=== PATIENT | female | born 1955 | race Caucasian/White ===

== ENCOUNTER 2018-01-29 18:53 | Emergency (ER) | payer SELFPAY ==
--- NOTE | 2018-01-29 19:02 | EDM.PDOC ---
ED HPI GENERAL MEDICAL PROBLEM - General Stated Complaint: BLOOD SUGURS ARE LOW Time Seen by Provider: 01/29/18 18:59 Source of Information: Reports: Patient History Limitations: Reports: No Limitations - History of Present Illness INITIAL COMMENTS - FREE TEXT/NARRATIVE: HISTORY AND PHYSICAL: History of present illness: 62-year-old female presenting to emergency department with chief complaint of low blood sugars over the past 4 weeks. Patient states that she recently moved to [place] to help her daughter with her children from [place] approximately 4 wks ago. Ever since she's moved here she's had problems with hypoglycemia. She does have a history of type 2 diabetes however after gastric bypass and losing weight she has not been taking any medications. She still does take sugars and states that ever since she came here she's been having episodes where her blood sugars are going into the 40s. Patient denies any new medications or other significant medical changes. She has felt more stressed and is tearful at this time. She does have a history of depression as well as suicide in the family. She currently denies any suicidal or homicidal ideations. 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 She is currently taking diltiazem as well as hydrochlorothiazide. In addition she is just taking vitamin supplements secondary to gastric bypass. She states that she can tell when she is getting low as she gets somewhat nauseous and weak. She also states that she has been more "cranky" and also feels like her "eyes are beginning to bulge". She has no history of hypo-or hyperthyroidism. She denies any chest pain, palpitations, shortness breath, syncopal episodes, focal neurologic deficits. Looking at the patient's glucometer history she has had several episodes of hypoglycemia in the past month. First episode started on 01/10 with a reading of 43, then 01/12 47, 01/19 54, 01/27 57. She denies any significant changes in her diet to explain his readings other than moving to [place]. Review of systems: As per history of present illness and below otherwise all systems reviewed and negative. Past medical history: As per history of present illness and as reviewed below otherwise noncontributory. Surgical history: As per history of present illness and as reviewed below otherwise noncontributory. Social history: No reported history of drug or alcohol abuse. Family history: As per history of present illness and as reviewed below otherwise noncontributory. Physical exam: HEENT: Atraumatic, normocephalic, pupils reactive, negative for conjunctival pallor or scleral icterus, mucous membranes moist, throat clear, neck supple, nontender, trachea midline. Lungs: Clear to auscultation, breath sounds equal bilaterally, chest nontender. Heart: S1S2, regular, negative for clicks, rubs, or JVD. Abdomen: Soft, nondistended, nontender. Negative for masses or hepatosplenomegaly. Negative for costovertebral tenderness. Pelvis: Stable nontender. Genitourinary: Deferred. Rectal: Deferred. Extremities: Atraumatic, negative for cords or calf pain. Neurovascular unremarkable. Neuro: Awake, alert, oriented. Cranial nerves II through XII unremarkable. Cerebellum unremarkable. Motor and sensory unremarkable throughout. Exam nonfocal. Diagnostics: CBC, CMP, TSH, UA/ECA Therapeutics: Bactrim DS 5 days Impression: Hypoglycemia Depression/anxiety Plan: CBC, CMP were unremarkable. Patients blood sugar was monitored while here in the emergency room and remained in the 90s. I did check TSH which was normal. She may need further investigation as an outpatient. In addition, patient did have a mild urinary tract infection/acute cystitis. This may be somewhat affecting her sugars. I did give the patient a prescription for Bactrim and instructed her to follow-up with her primary care provider by calling their office on Thursday. Patient was discharged in good condition with instructions to return to emergency department if she had a normal worsening symptoms. Further investigation for her hypoglycemia is warranted as an outpatient. Definitive disposition and diagnosis as appropriate pending reevaluation and review of above. Headache Pain Score (Numeric/FACES): 2 - Related Data Allergies Allergy/AdvReac Type Severity Reaction Status Date / Time No Known Allergies Allergy Verified 01/29/18 19:15 Home Meds: Home Meds Aspirin 81 mg PO BEDTIME 01/29/18 [History] Cyanocobalamin (Vitamin B-12) [Cyanocobalamin Injection] 1 ml IM ASDIRECTED 09/11 [History] Dextrose [Glucose] 4 gm PO ASDIRECTED 01/29/18 [History] Diltiazem HCl [Cardizem] 30 mg PO BEDTIME 01/29/18 [History] Docusate Sodium [Stool Softener] 50 mg PO ASDIRECTED 01/29/18 [History] Hydrochlorothiazide [Microzide] 12.5 mg PO BEDTIME 01/29/18 [History] Magnesium Oxide [Magnesium] 500 mg PO DAILY 01/29/18 [History] Pantoprazole Sodium [Protonix] 40 mg PO BEDTIME 01/29/18 [History] ED ROS GENERAL - Review of Systems Review Of Systems: ROS reveals no pertinent complaints other than HPI. ED EXAM, GENERAL - Physical Exam Exam: See Below Course - Vital Signs Last Recorded V/S: Last Vital Signs Temp 98.4 F 01/29/18 19:11 Pulse 89 01/29/18 19:11 Resp 20 01/29/18 19:11 BP 140/86 01/29/18 19:11 Pulse Ox 96 01/29/18 19:11 - Orders/Labs/Meds Orders: Active Orders 24 hr Category Date Time Status CULTURE URINE [RM] Stat Lab 01/29/18 20:25 Received Labs: Laboratory Tests 01/29/18 01/29/18 01/29/18 Range/Units 19:10 19:47 19:47 WBC 7.67 (4.0-11.0) K/uL RBC 4.68 (4.30-5.90) M/uL Hgb 14.1 (12.0-16.0) g/dL Hct 41.0 (36.0-46.0) % MCV 87.6 (80.0-98.0) fL MCH 30.1 (27.0-32.0) pg MCHC 34.4 (31.0-37.0) g/dL RDW Std Deviation 43.8 (28.0-62.0) fl RDW Coeff of Damon 14 (11.0-15.0) % Plt Count 228 (150-400) K/uL MPV 9.80 (7.40-12.00) fL Neut % (Auto) 67.2 (48.0-80.0) % Lymph % (Auto) 23.6 (16.0-40.0) % Iron % (Auto) 7.6 (0.0-15.0) % Eos % (Auto) 1.2 (0.0-7.0) % Baso % (Auto) 0.4 (0.0-1.5) % Neut # (Auto) 5.2 (1.4-5.7) K/uL Lymph # (Auto) 1.8 (0.6-2.4) K/uL Iron # (Auto) 0.6 (0.0-0.8) K/uL Eos # (Auto) 0.1 (0.0-0.7) K/uL Baso # (Auto) 0.0 (0.0-0.1) K/uL Nucleated RBC % 0.0 /100WBC Nucleated RBCs # 0 K/uL Sodium 140 (136-145) mmol/L Potassium 3.9 (3.5-5.1) mmol/L Chloride 104 (98-107) mmol/L Carbon Dioxide 27.6 (21.0-32.0) mmol/L BUN 27 H (7.0-18.0) mg/dL Creatinine 0.8 (0.6-1.0) mg/dL Est Cr Clr Drug Dosing 64.58 mL/min Estimated GFR (MDRD) > 60.0 ml/min Glucose 110 H (74-106) mg/dL POC Glucose 80 (60-110) mg/dL Calcium 9.1 (8.5-10.1) mg/dL Total Bilirubin 0.4 (0.2-1.0) mg/dL AST 15 (15-37) IU/L ALT 27 (14-63) IU/L Alkaline Phosphatase 110 (46-116) U/L Total Protein 7.4 (6.4-8.2) g/dL Albumin 4.0 (3.4-5.0) g/dL Globulin 3.4 (2.0-3.5) g/dL Albumin/Globulin Ratio 1.2 L (1.3-2.8) TSH 3rd Generation 3.35 (0.36-3.74) uIU/mL Urine Color Urine Appearance Urine pH (5.0-8.0) Ur Specific [place] (1.001-1.035) Urine Protein (NEGATIVE) mg/dL Urine Glucose (UA) (NEGATIVE) mg/dL Urine Ketones (NEGATIVE) mg/dL Urine Occult Blood (NEGATIVE) Urine Nitrite (NEGATIVE) Urine Bilirubin (NEGATIVE) Urine Urobilinogen (<2.0) EU/dL Ur Leukocyte Esterase (NEGATIVE) Urine RBC (0-2/HPF) Urine WBC (0-5/HPF) Ur Epithelial Cells (NONE-FEW) Urine Bacteria (NEGATIVE) 01/29/18 01/29/18 01/29/18 Range/Units 19:51 20:24 20:25 WBC (4.0-11.0) K/uL RBC (4.30-5.90) M/uL Hgb (12.0-16.0) g/dL Hct (36.0-46.0) % MCV (80.0-98.0) fL MCH (27.0-32.0) pg MCHC (31.0-37.0) g/dL RDW Std Deviation (28.0-62.0) fl RDW Coeff of Damon (11.0-15.0) % Plt Count (150-400) K/uL MPV (7.40-12.00) fL Neut % (Auto) (48.0-80.0) % Lymph % (Auto) (16.0-40.0) % Iron % (Auto) (0.0-15.0) % Eos % (Auto) (0.0-7.0) % Baso % (Auto) (0.0-1.5) % Neut # (Auto) (1.4-5.7) K/uL Lymph # (Auto) (0.6-2.4) K/uL Iron # (Auto) (0.0-0.8) K/uL Eos # (Auto) (0.0-0.7) K/uL Baso # (Auto) (0.0-0.1) K/uL Nucleated RBC % /100WBC Nucleated RBCs # K/uL Sodium (136-145) mmol/L Potassium (3.5-5.1) mmol/L Chloride (98-107) mmol/L Carbon Dioxide (21.0-32.0) mmol/L BUN (7.0-18.0) mg/dL Creatinine (0.6-1.0) mg/dL Est Cr Clr Drug Dosing mL/min Estimated GFR (MDRD) ml/min Glucose (74-106) mg/dL POC Glucose 97 98 (60-110) mg/dL Calcium (8.5-10.1) mg/dL Total Bilirubin (0.2-1.0) mg/dL AST (15-37) IU/L ALT (14-63) IU/L Alkaline Phosphatase (46-116) U/L Total Protein (6.4-8.2) g/dL Albumin (3.4-5.0) g/dL Globulin (2.0-3.5) g/dL Albumin/Globulin Ratio (1.3-2.8) TSH 3rd Generation (0.36-3.74) uIU/mL Urine Color YELLOW Urine Appearance HAZY Urine pH 5.5 (5.0-8.0) Ur Specific [place] 1.010 (1.001-1.035) Urine Protein NEGATIVE (NEGATIVE) mg/dL Urine Glucose (UA) NEGATIVE (NEGATIVE) mg/dL Urine Ketones NEGATIVE (NEGATIVE) mg/dL Urine Occult Blood NEGATIVE (NEGATIVE) Urine Nitrite NEGATIVE (NEGATIVE) Urine Bilirubin NEGATIVE (NEGATIVE) Urine Urobilinogen 0.2 (<2.0) EU/dL Ur Leukocyte Esterase TRACE (NEGATIVE) Urine RBC 0-2 (0-2/HPF) Urine WBC 1-4 (0-5/HPF) Ur Epithelial Cells FEW (NONE-FEW) Urine Bacteria 1+ H (NEGATIVE) Departure - Departure Time of Disposition: 21:07 Disposition: Home, Self-Care 01 Condition: Good Clinical Impression: Hypoglycemia after GI (gastrointestinal) surgery Acute cystitis Qualifiers: Hematuria presence: without hematuria Qualified Code(s): N30.00 - Acute cystitis without hematuria - Discharge Information Referrals: PCP,None [Primary Care Provider] - Additional Instructions: My general discharge The following information is given to patients seen in the emergency department who are being discharged to home. This information is to outline your options for follow-up care. We provide all patients seen in our emergency department with a follow-up referral. The need for follow-up, as well as the timing and circumstances, are variable depending upon the specifics of your emergency department visit. If you don't have a primary care physician on staff, we will provide you with a referral. We always advise you to contact your personal physician following an emergency department visit to inform them of the circumstance of the visit and for follow-up with them and/or the need for any referrals to a consulting specialist. The emergency department will also refer you to a specialist when appropriate. This referral assures that you have the opportunity for follow-up care with a specialist. All of these measure are taken in an effort to provide you with optimal care, which includes your follow-up. Under all circumstances we always encourage you to contact your private physician who remains a resource for coordinating your care. When calling for follow-up care, please make the office aware that this follow-up is from your recent emergency room visit. If for any reason you are refused follow-up, please contact the [facility] at and asked to speak to the emergency department charge nurse. [facility] [address] [place] [phone] Please call above number to follow-up with a primary care provider. I would recommend asking for the residency clinic. Be sure to tell them that you were seen in the emergency department and they wish for you to be seen as soon as possible. Take medication as prescribed. Return emergency permanently new or worsening symptoms as we discussed. - My Orders Last 24 Hours: My Active Orders 01/29/18 20:25 CULTURE URINE [RM] Stat - Assessment/Plan Last 24 Hours: My Active Orders 01/29/18 20:25 CULTURE URINE [RM] Stat
[2018-01-29 20:27] LABS: CHLORIDE,CL 104 mmol/L (98-107); SODIUM,NA 140 mmol/L (136-145)
== END 2018-01-29 21:17 | disposition home or self-care (01) ==
LOC: MW.ED 18:53
DX: E11.649 Type 2 diabetes mellitus with hypoglycemia without coma (principal); N30.00 Acute cystitis without hematuria; F32.9 Major depressive disorder, single episode, unspecified; F41.9 Anxiety disorder, unspecified; Z79.82 Long term (current) use of aspirin; Z79.899 Other long term (current) drug therapy
CPT/HCPCS: 36415; 80053; 81001; 82962; 84443; 85025; 87086; 99285